=== PATIENT | male | born 1990 | race American Indian/Alaskan Native ===

== ENCOUNTER 2018-11-05 12:44 | Emergency (ER) | payer BC ==
[2018-11-05 13:19] VITALS: RESP 18
--- NOTE | 2018-11-05 14:49 | ED PDOC ---
HPI: Headache Time Seen by Provider: 11/05/18 13:18 Chief Complaint (Nursing): Headache Chief Complaint (Provider): headache History Per: Patient History/Exam Limitations: no limitations Onset/Duration Of Symptoms: Days (x1 week and a half) Current Symptoms Are (Timing): Still Present Pain Scale Rating Of: 6 Preceeding Symptoms: None Associated Symptoms: denies: Photophobia, Blurred Vision, Nausea, Vomiting, Extremity Weakness Additional Complaint(s): Edmundo Frazier is a 28 year old male, with a past medical history of migraines, who presents to the emergency department complaining of a migraine headache present on the left side ongoing for a week and a half. Patient states pain radiates to his ear and left side of face. He reports a history of similar migraines but notes they usually don't last this long and ranks it a 6/10. He has been taking OTC medicine at home with temporary relief, he took 1 tab of 220mg of Aleve at 08:00 this morning. He denies any fever, chills, neck pain or stiffness, photophobia, phonophobia, nausea, vomiting, visual changes, weakness, numbness, tingling, sick contacts or recent travel. No further medical complaints. PMD: None provided. Past Medical History Reviewed: Historical Data, Nursing Documentation, Vital Signs Vital Signs: Last Vital Signs Temp 98.4 F 11/05/18 13:17 Pulse 73 11/05/18 13:17 Resp 18 11/05/18 13:17 BP 163/83 H 11/05/18 13:17 Pulse Ox 100 11/05/18 13:17 - Medical History PMH: Migraine - Surgical History Other surgeries: left knee orthopedic - Family History Family History: States: Unknown Family Hx - Social History Current smoker - smoking cessation education provided: No Alcohol: Social Drugs: Denies - Home Medications Home Medications: Ambulatory Orders Medication Instructions Recorded Acetaminophen [Acetaminophen 8 650 mg PO Q8 PRN #21 tablet.er 11/05/18 Hour] RX: Naproxen 500 mg PO BID PRN #20 tab 11/05/18 - Allergies Allergies/Adverse Reactions: Allergies Allergy/AdvReac Type Severity Reaction Status Date / Time No Known Allergies Allergy Verified 11/05/18 13:17 Review of Systems ROS Statement: Except As Marked, All Systems Reviewed And Found Negative Constitutional: Negative for: Fever, Chills Eyes: Negative for: Vision Change ENT: Positive for: Ear Pain Gastrointestinal: Negative for: Nausea, Vomiting Musculoskeletal: Negative for: Neck Pain (stifness) Neurological: Positive for: Headache. Negative for: Weakness, Numbness (tingling), Other (photophobia, phonophobia) Physical Exam - Reviewed Nursing Documentation Reviewed: Yes Vital Signs Reviewed: Yes - Physical Exam Comments: GENERAL APPEARANCE: Patient is awake, alert, oriented x 3, in no acute distress. Resting comfortably. SKIN: Warm, dry; (-) cyanosis; (-) rash. HEAD: (-) scalp swelling or tenderness, (-) temporal artery tenderness. EYES: (-) conjunctival injection ENMT: Pharynx is clear, uvula midline (-) erythema, (-) exudates. (-) sinus tenderness; mucous membranes are moist. TMs (-) bulging, (-) erythema. Airway patent, (-) stridor. (-) TMJ joint tenderness NECK: Supple, FROM (-) tenderness, (-) stiffness, (-) meningismus, (-) lymphadenopathy. CHEST AND RESPIRATORY: (-) rales, (-) rhonchi, (-) wheezes; breath sounds equal bilaterally. Respirations even and nonlabored. HEART AND CARDIOVASCULAR: (-) irregularity ABDOMEN AND GI: Soft; (-) tenderness. EXTREMITIES: (-) deformity. NEURO AND PSYCH: Mental status as above. state auditor: Intact. Pupils equal and reactive; EOMI and painless; (-) facial asymmetry; tongue and uvula midline. Strength symmetric. Cerebellar tests normal. Speech clear. Gait: steady. - ECG O2 Sat by Pulse Oximetry: 100 (RA) Pulse Ox Interpretation: Normal Medical Decision Making Medical Decision Making: Time: 13:20 Initial Impression: Migraine headache Initial Plan: --Benadryl 25 mg PO (not driving home) --Reglan 10 mg IM --Toradol 30 mg IM --Reevaluation 1440 Patient resting comfortably awaiting medication administration. No distress noted. 1600 Repeat BP: 148/78 Repeat HR: 68 On re-evaluation, patient reports improvement of symptoms. On exam, patient remains AAOx3, in no acute distress. Lungs clear to auscultation, cardiac RRR, repeat neuro exam shows no focal findings. Patient requesting discharge. Vitals stable. Lab/Diagnostic results d/w the patient in great detail. Diagnosis of migraine headache d/w the patient. Based on history, exam and diagnostic results, plan will be for outpatient follow up with PMD/clinic. Patient instructed to follow-up with pmd / referral provided / the clinic in 1- 2 days without fail. Advised to take medication as prescribed. Return to the emergency room at any time for any new or worsening symptoms. Patient states he fully agrees with and understands discharge instructions. States that he agrees with the plan and disposition. Verbalized and repeated discharge instructions and plan. I have given the patient opportunity to ask any additional questions. ----- Scribe Attestation: Documented by Steve Schwartz, acting as a scribe for Gabby Cramer PA-C. Provider Scribe Attestation: All medical record entries made by the Scribe were at my direction and personally dictated by me. I have reviewed the chart and agree that the record accurately reflects my personal performance of the history, physical exam, medical decision making, and the department course for this patient. I have also personally directed, reviewed, and agree with the discharge instructions and disposition. Disposition - Clinical Impression Clinical Impression: Headache, Migraine - Patient ED Disposition Is Patient to be Admitted: No Counseled Patient/Family Regarding: Studies Performed, Diagnosis, Need For Followup, Rx Given - Disposition Referrals: [facility] [Outside] Luiza Guzman MD [Medical Doctor] - Disposition: Routine/Home Disposition Time: 16:00 Condition: STABLE Additional Instructions: The emergency medical care you received today was directed at your acute symptoms. If you were prescribed any medication, please fill it and take as directed. It may take several days for your symptoms to resolve. Return to the Emergency Department if your symptoms worsen, do not improve, or if you have any other problems. Please contact your doctor in 2 days for re-evaluation and follow up / or call one of the physicians/clinics you have been referred to that are listed on the Patient Visit Information form that is included in your discharge packet. Bring any paperwork you were given at discharge with you along with any medications you are taking to your follow up visit. Our treatment cannot replace ongoing medical care by a primary care provider (PCP) outside of the emergency department. Prescriptions: Acetaminophen [Acetaminophen 8 Hour] 650 mg PO Q8 PRN #21 tablet.er PRN Reason: Headache RX: Naproxen 500 mg PO BID PRN #20 tab PRN Reason: Headache Instructions: Headache, Adult, Migraine Headache (DC) Forms: Simplify (Libyan) Print Language: FRENCH - POA Present On Arrival: None
[2018-11-05 16:37] VITALS: BP 148/78; PULSE 68; TEMP 98.2
[2018-11-07 23:29] VITALS: O2SAT 100
== END 2018-11-05 16:37 | disposition home or self-care (01) ==
LOC: H.ER 12:44
DX: G43.909 Migraine, unspecified, not intractable, without status migrainosus (principal)
CPT/HCPCS: 96372; 99285; J1885; J2765